=== PATIENT | male | born 1955 | race Caucasian/White ===

== ENCOUNTER 2018-04-01 07:59 | Inpatient (IN) ==
[2018-04-01] MEDS ORDERED: Nitroglycerin 0.4 MG TAB.SUBL SL PRN (10:57)
[2018-04-01] MEDS ORDERED: Naloxone 0.4 MG/ML INJ IVP PRN ×2 (10:58→11:01)
--- NOTE | 2018-04-01 11:03 | History & Physical Report ---
Date of Encounter: 04/01/18 Time of Encounter: 10:30 24 Hour HP Update - Instructions Instructions: If the History and Physical is less than 30 days old and was completed prior to A.M. admission and or procedure and has NOT been updated on calendar day of procedure please complete this update prior to performing procedure. - Update Patient reports changes in Medical Condition: No Changes in examination, assessment, or condition: No Changes in Medication: No Preop tests/diagnostics Reviewed: Yes
[2018-04-01] MEDS: Aspirin Enteric Coated 81 MG Tablet PO SCH (11:11)
[2018-04-01] MEDS: Isosorbide MONOnitrate (24 HR) 30 MG TAB.ER.24H PO SCH (11:12)
[2018-04-01] MEDS: Magnesium Oxide 400 MG TABLET PO SCH (11:12)
[2018-04-01] MEDS: GuaiFENesin Liq 200 MG/10 ML UDC PO PRN (15:39)
[2018-04-01 16:13] LABS: INR 2.7; Prothrombin Time 30.8 Seconds (9.4-12.1)
[2018-04-01] MEDS: *HR* Warfarin 5 MG TABLET PO SCH (17:22)
[2018-04-01] MEDS ORDERED: Warfarin perPT PO PRN (18:00)
[2018-04-02 06:07] LABS: INR 2.7; Prothrombin Time 30.9 Seconds (9.4-12.1)
[2018-04-02] MEDS: Aspirin Enteric Coated 81 MG Tablet PO SCH (07:40)
[2018-04-02] MEDS: Magnesium Oxide 400 MG TABLET PO SCH (07:40)
[2018-04-02] MEDS: Isosorbide MONOnitrate (24 HR) 30 MG TAB.ER.24H PO SCH (07:40)
--- NOTE | 2018-04-02 10:27 | Electrophysiology ProgressNote ---
Date of Encounter: 04/02/18 Time of Encounter: 10:24 Assessment and Plan (1) Atrial fibrillation Current Visit: No Status: Chronic Presents for sotalol increase for recurrent atrial fibrillation under the recommendation of Dr. Christopher Taylor. S/p two doses sotalol 120 mg. Remains in NSR. Baseline 04/01/18- EKG HR 71 bpm, SR with RBBB, QT/QTc 423/445, QRS 122. EKG 04/02/18- HR 57 bpm, QT/QTc 475/468, QRS 123. Telemetry shows avg HR 68 bpm. Min HR 50. No afib seen. He is on coumadin therapy monitored by [facility]. [facility] 3.2 [facility] 5 weeks ago. INR 2.7 today. As of note patient held coumadin for one day in the past month anticipating shoulder injection. Qualifiers: Atrial fibrillation type: paroxysmal Qualified Code(s): I48.0 - Paroxysmal atrial fibrillation (2) Viral URI with cough Current Visit: Yes Status: Acute Notes cough 24 hours prior to admit. Denies history of COPD. Denies fever or chills. Lungs clear to auscultation. Will continue cough suppressant. Continue to monitor. Discussion w patient/family: The assessment and plan as outlined above was discussed with the patient and/or family members who expressed understanding and agreement. All questions were answered. Thank you for involving us in the care of your patient. Please call with any questions. Subjective Principal diagnosis: afib Interval history: Mr. Perdomo is resting in bed with no new complaints. C/o cough starting 48 hours prior to admit. Started on cough syrup yesterday. Denies fever or chills. Objective Vital Signs, Last 4 Hours Temp Pulse Resp BP Pulse Ox 04/02/18 07:53 98.1 F 60 18 162/99 98 General: Conversant, No Apparent Distress HEENT: Atraumatic, Normocephaly, Mucus Membranes Moist Neck: No JVD, Normal carotid pulses Cardiac: Reg Rate and Rhythm, Normal S1 and S2, No Murmur Lungs: Normal Breath Sounds, No Wheeze, Rales, Rhonchi Neuro: Alert and responsive, No focal deficits noted Abdomen: Soft, Non-Tender Skin: No rashes noted on visualized skin Musculoskeletal: No Chest Wall Tenderness Extremities: No Clubbing, No Cyanosis, No Edema, Normal Pulses, Other (Right arm weakness due to rotator cuff damage. ) Results Lab Results 04/01/18 04/02/18 15:36 05:29 INR 2.7 2.7 - Imaging and Cardiology Echo: report reviewed - EKG Interpretation EKG results cardiology: personally reviewed - VTE Reasons for not Prescribing Prophylaxis: Not indicated-Anticoagulated or INR therapeutic Consult Discharge Plan - Plan Referrals: Christopher Taylor MD [Partnered Physician] - (Office will call patient at home with follow up appointment) [facility] [[facility] Care Provider[facility] - 04/14/18 1:15 pm
[2018-04-02] MEDS: GuaiFENesin Liq 200 MG/10 ML UDC PO PRN ×2 (11:40→17:29)
[2018-04-02] MEDS: *HR* Warfarin 5 MG TABLET PO SCH (17:26)
[2018-04-03 04:49] LABS: INR 2.7; Prothrombin Time 30.4 Seconds (9.4-12.1)
[2018-04-03] MEDS: Isosorbide MONOnitrate (24 HR) 30 MG TAB.ER.24H PO SCH (08:37)
[2018-04-03] MEDS: GuaiFENesin Liq 200 MG/10 ML UDC PO PRN (08:37)
[2018-04-03] MEDS: Aspirin Enteric Coated 81 MG Tablet PO SCH (08:37)
[2018-04-03] MEDS: Magnesium Oxide 400 MG TABLET PO SCH (08:37)
--- NOTE | 2018-04-03 10:56 | Discharge Summary ---
Orders not resulted at time of discharge: Pending orders 04/03/18 06:00 ECG 12 lead ECG [ECG] AM 0600 04/03/18 12:00 EKG [ECG 12 lead ECG] [ECG] Routine 04/04/18 04:00 INR/PT [Prothrombin Time INR] [COAG] AM 0400 04/04/18 06:00 ECG 12 lead ECG [ECG] AM 0600 Date of Encounter: 04/03/18 Time of Encounter: 10:50 - Discharge Diagnosis (1) Atrial fibrillation Priority: Primary Status: Chronic Comments: Directly admitted for paroxysmal atrial fibrillation and antiarrhythmic titration. Qualifiers: Atrial fibrillation type: paroxysmal Qualified Code(s): I48.0 - Paroxysmal atrial fibrillation - Hospital Course Hospital course: Mr. Main is a 62 year old male directly admitted for up titration of sotalol for paroxysmal atrial fibrillation. Patient remained sinus rhythm during the entire stay. Prepping for discharge today on sotalol 120 mg by mouth every 12 hours. Discussed and reviewed with Dr. Christopher Taylor. Remains anticoagulated with Coumadin. All questions answered. - Time Spent with Patient Total time spent providing and/or coordinating discharge services: Less than 30 minutes - Discharge Medications Prescriptions: Sotalol [Betapace] 120 mg PO Q12H #60 tablet Home Medications: Warfarin [Coumadin] 7.5 mg PO SUMOTUWETHSA@1800 12/31/15 [History] Nitroglycerin [Nitrostat] 0.4 mg SL DAILY PRN 05/31/16 [History] Isosorbide MONOnitrate (24 HR) [Imdur] 90 mg PO DAILY 04/01/18 [History] Acetaminophen [Tylenol] 1,000 mg PO TID PRN 04/02/18 [History] Aspirin [Lo-Dose Aspirin EC] 81 mg PO DAILY 04/02/18 [History] Atorvastatin Calcium [Lipitor] 40 mg PO DAILY 04/02/18 [History] Diclofenac Sodium [Voltaren] 1 appl TP QID PRN 04/02/18 [History] Lisinopril [Zestril] 10 mg PO DAILY 04/02/18 [History] Magnesium Oxide [Magnesium] 500 mg PO DAILY 04/02/18 [History] Methocarbamol [Robaxin] 750 mg PO TID PRN 04/02/18 [History] Omeprazole [PriLOSEC] 20 mg PO DAILY 04/02/18 [History] Warfarin Sodium 5 mg PO FR@1800 04/02/18 [History] Sotalol [Betapace] 120 mg PO Q12H #60 tablet 04/03/18 [Rx] Allergies/Adverse Reactions: 3 Allergy/AdvReac Type Severity Reaction Status Date / Time No Known Allergies Allergy Verified 04/02/18 13:34 Date of admission: 04/01/18 10:51 Primary care physician: [facility] Consults: none Discharging clinician: Rene Serna Anticipated date of discharge: 04/03/18 Physical Examination Vital Signs, Last 4 Hours Temp Pulse Resp BP Pulse Ox 04/03/18 06:58 98.3 F 59 17 171/94 97 General: Conversant, No Apparent Distress HEENT: Atraumatic, Normocephaly, Mucus Membranes Moist Neck: No JVD, Normal carotid pulses Cardiac: Reg Rate and Rhythm, Normal S1 and S2, No Murmur Lungs: Normal Breath Sounds, No Wheeze, Rales, Rhonchi Neuro: Alert and responsive, No focal deficits noted Abdomen: Soft, Non-Tender Skin: No rashes noted on visualized skin Musculoskeletal: No Chest Wall Tenderness Extremities: No Clubbing, No Cyanosis, No Edema, Normal Pulses - Patient Status Disposition: Home, Self-Care Functional capacity at discharge: independent ambulation Overall status at discharge: patient is progressing back to baseline - Discharge Instructions Instructions: Sotalol (By mouth), Atrial Fibrillation (DC) Follow Up With: Christopher Taylor MD [Partnered Physician] - (Office will call patient at home with follow up appointment) [facility] [Primary Care Provider] - 04/14/18 1:15 pm - Diet and Activity Diet: advance to your usual diet, low fat, low cholesterol, low salt diet - VTE Reasons for not Prescribing Prophylaxis: Not indicated-Anticoagulated or INR therapeutic
[2018-04-03 11:17] VITALS: BP 140/81
--- NOTE | 2018-04-03 12:02 | Electrocardiograph Report ---
[place] [address] Test Date: 2018-04-01 Pat Name: Bob Main Department: 110 Room: Gender: M Brewing Director: : 1955 Requested By: Rene Serna Order Number: [id number] Reading MD: Jad Choi Measurements Intervals [place] Rate: 71 P: 54 MO: 156 QRS: -46 QRSD: 122 T: 5 QT: 423 QTc: 445 Interpretive Statements SINUS RHYTHM RIGHT BUNDLE BRANCH BLOCK LEFT ANTERIOR FASCICULAR BLOCK POSSIBLE LEFT VENTRICULAR HYPERTROPHY Electronically Signed On 04-03-2018 12:00:23 EDT by Jad Choi
--- NOTE | 2018-04-03 14:13 | Electrocardiograph Report ---
[place] [address] Test Date: 2018-04-02 Pat Name: Bob Main Department: 110 Room: 2N12 Gender: M Electronics Specialist: ANITA : 1955 Requested By: Rene Serna Order Number: [id number] Reading MD: Jad Choi Measurements Intervals [place] Rate: 57 P: 54 [place]: 167 QRS: -31 QRSD: 123 T: -5 QT: 475 QTc: 468 Interpretive Statements SINUS BRADYCARDIA RIGHT BUNDLE BRANCH BLOCK Left axis deviation Moderate voltage criteria for LVH Electronically Signed On 04-03-2018 14:11:51 EDT by Jad Choi Electronically Signed On 04-03-2018 15:17:38 EDT by Jad Choi
--- NOTE | 2018-04-03 15:17 | Electrocardiograph Report ---
[address] [address] Test Date: 2018-04-03 Pat Name: Bob Main Department: 110 Room: 2N12 Gender: Operational Intelligence Officer: REID : [id number] Requested By: Rene Serna Order Number: [id number] Reading MD: Jad Choi Measurements Intervals [place] Rate: 56 P: 47 [place]: 158 QRS: -36 QRSD: 133 T: -5 QT: 468 QTc: 461 Interpretive Statements SINUS BRADYCARDIA MARKED LEFT AXIS DEVIATION RIGHT BUNDLE BRANCH BLOCK MODERATE VOLTAGE CRITERIA FOR LVH Electronically Signed On 04-03-2018 15:15:28 EDT by Jad Choi
[2018-04-03] MEDS ORDERED: *HR* Warfarin 5 MG TABLET PO SCH (18:00)
[2018-04-04] MEDS ORDERED: *HR* Warfarin 5 MG TABLET PO SCH (18:00)
--- NOTE | 2018-04-23 21:34 | Electrocardiograph Report ---
[address] [place], [place] [address] Test Date: 2018-04-03 Pat Name: Bob Main Department: 110 Room: 2N12 Gender: Pickers Material Handlers: RADHA : 1955 Requested By: Order Number: [id number] Reading MD: Jad Choi Measurements Intervals [place] Rate: 57 P: 55 [place]: 178 QRS: -34 QRSD: 121 T: -3 QT: 467 QTc: 461 Interpretive Statements SINUS BRADYCARDIA WITH OCCASIONAL SUPRAVENTRICULAR PREMATURE COMPLEXES MARKED LEFT AXIS DEVIATION RIGHT BUNDLE BRANCH BLOCK POSSIBLE LEFT VENTRICULAR HYPERTROPHY Electronically Signed On 04-23-2018 21:33:15 EDT by Jad Choi
== END 2018-04-03 12:41 | disposition home or self-care (01) | DRG 950 ==
LOC: 2NNU 10:51
PROVIDERS: ADMIT Internal Medicine Clinical Cardiac Electrophysiology; ATTEND Internal Medicine Clinical Cardiac Electrophysiology

== ENCOUNTER 2019-03-30 07:08 | Observation (INO) ==
[2019-03-30] MEDS ORDERED: 0.9 % Sodium Chloride 1,000 ML ONE ×4 (07:31→13:10)
[2019-03-30] MEDS: 0.9 % Sodium Chloride 1,000 ML IVC SCH ×2 (07:44→17:43)
[2019-03-30] MEDS ORDERED: *HR* Heparin 10,000 UNIT/10 ML VIAL ONE (08:09)
[2019-03-30] MEDS ORDERED: Iopamidol 125 ML INFUS..BTL ONE (08:09)
[2019-03-30] MEDS ORDERED: Heparin 1,000 UNITS/500 mL 500 ML ONE (08:09)
[2019-03-30 08:13] LABS: INR 2.1; Prothrombin Time 23.5 Seconds (9.4-12.1)
[2019-03-30] MEDS ORDERED: *HR* FentaNYL (PF) 250 MCG/5 ML VIAL ONE (09:57)
[2019-03-30] MEDS ORDERED: *HR* Midazolam HCl 2 MG/2 ML VIAL ONE (09:58)
[2019-03-30] MEDS ORDERED: Protamine Sulfate 50 MG/5 ML VIAL IVP ONE ×3 (12:00→12:17)
[2019-03-30] MEDS ORDERED: Naloxone 0.4 MG/ML INJ IVP PRN (12:03)
[2019-03-30] MEDS ORDERED: Nitroglycerin 0.4 MG TAB.SUBL SL PRN (12:40)
[2019-03-30] MEDS ORDERED: EPHEDrine 50 MG/ML VIAL IVP ONE (13:34)
[2019-03-30] MEDS ORDERED: *HR* Phenylephrine 10 MG/ML VIAL IVC ONE (13:34)
[2019-03-30] MEDS ORDERED: *HR* Water for inj. (sterile) Vial IV ONE (13:34)
[2019-03-30] MEDS ORDERED: Ondansetron 4 MG/2 ML VIAL IVP ONE (13:34)
[2019-03-30] MEDS ORDERED: *HR* Propofol 200 MG/20 ML VIAL IVP ONE (13:34)
[2019-03-30] MEDS ORDERED: *HR* Rocuronium Bromide 50 MG/5 ML VIAL IVC ONE (13:34)
[2019-03-30] MEDS ORDERED: Lidocaine 2% Syringe 100 MG/5 ML IV ONE (13:34)
[2019-03-30] MEDS ORDERED: *HR* Succinylcholine 200 MG/10 ML VIAL IVP ONE (13:34)
[2019-03-30] MEDS ORDERED: Lidocaine -MPF 4% 5 ML AMPUL INFILT ONE (13:34)
[2019-03-30] MEDS: *HR* Metformin 500 MG TABLET PO SCH (17:41)
[2019-03-30] MEDS ORDERED: *HR* Warfarin 7.5 MG TABLET PO SCH (18:00)
[2019-03-30] MEDS ORDERED: Acetaminophen 325 MG TABLET PO PRN (19:01)
[2019-03-31 04:02] VITALS: BP 134/76
[2019-03-31] MEDS: *HR* Metformin 500 MG TABLET PO SCH (08:06)
[2019-03-31] MEDS ORDERED: Aspirin Enteric Coated 81 MG Tablet PO SCH (09:00)
[2019-03-31] MEDS ORDERED: Isosorbide MONOnitrate (24 HR) 30 MG TAB.ER.24H PO SCH (09:00)
[2019-03-31] MEDS ORDERED: Magnesium Oxide 400 MG TABLET PO SCH (09:00)
[2019-04-03] MEDS ORDERED: *HR* Warfarin 5 MG TABLET PO SCH (18:00)
== END 2019-03-31 13:35 | disposition home or self-care (01) ==
LOC: ICNU 07:08 → INVDIALAB 07:08 → ICNU 03-31 09:44
PROVIDERS: ADMIT Internal Medicine Clinical Cardiac Electrophysiology; ATTEND Internal Medicine Clinical Cardiac Electrophysiology

== ENCOUNTER 2021-07-07 14:33 | Inpatient (IN) ==
[2021-07-07] MEDS ORDERED: *HR* HYDROmorphone (PF) 1 MG/ML SYRINGE IVP PRN ×2 (14:41→17:25)
[2021-07-07] MEDS ORDERED: Pregabalin 75 MG CAPSULE PO ONE (14:41)
[2021-07-07] MEDS ORDERED: *HR* Labetalol 20 MG/4 ML SYRINGE IVP PRN ×2 (14:41→17:25)
[2021-07-07] MEDS ORDERED: Famotidine 20 MG/2 ML VIAL IVP ONE (14:41)
[2021-07-07] MEDS ORDERED: Acetaminophen IV 1,000 MG/100 ML BAG IVPB ONE ×2 (14:41→15:54)
[2021-07-07] MEDS ORDERED: *HR* OxyCODONE Immed Rel 5 MG TABLET PO PRN ×4 (14:41→17:25)
[2021-07-07] MEDS ORDERED: *HR* HYDROmorphone 2 MG TABLET PO PRN ×2 (14:41→17:25)
[2021-07-07] MEDS ORDERED: Lidocaine HCL 4 ML Topical Solution (Laryng-O-Jet Kit Sterile Pak) TP ONE (15:37)
[2021-07-07] MEDS ORDERED: *HR* FentaNYL (PF) 100 MCG/2 ML VIAL ONE (15:37)
[2021-07-07] MEDS ORDERED: Lidocaine -MPF 2% 5 ML VIAL ONE ×2 (15:37→15:38)
[2021-07-07] MEDS ORDERED: Ondansetron 4 MG/2 ML VIAL ONE (15:37)
[2021-07-07] MEDS ORDERED: *HR* Propofol 200 MG/20 ML VIAL IVP ONE ×2 (15:37→15:39)
[2021-07-07] MEDS ORDERED: ceFAZolin 2,000 MG in Water for inj. (sterile) 20 ML IVP ONE (15:46)
[2021-07-07] MEDS ORDERED: *HR* Rocuronium Bromide 50 MG/5 ML VIAL ONE (15:47)
[2021-07-07] MEDS ORDERED: Naloxone 0.4 MG/ML INJ IVP PRN ×2 (16:01→17:25)
[2021-07-07] MEDS ORDERED: Acetaminophen 325 MG TABLET PO PRN ×2 (16:01→17:25)
[2021-07-07] MEDS ORDERED: Ondansetron 4 MG/2 ML VIAL IVP PRN ×2 (16:01→17:25)
[2021-07-07] MEDS ORDERED: *HR* HYDROcodone/Acet 5/325 mg TABLET PO PRN ×2 (16:01→18:00)
[2021-07-07] MEDS ORDERED: EPHEDrine 50 MG/ML VIAL ONE (16:08)
[2021-07-07] MEDS ORDERED: Ringers Solution, Lactated 1,000 ML IVC SCH (16:15)
[2021-07-07] MEDS: Ringers Solution, Lactated 1,000 ML IVC SCH (17:50)
[2021-07-07] MEDS ORDERED: *HR* Warfarin 5 MG TABLET PO ONE (18:00)
[2021-07-07] MEDS ORDERED: Warfarin perPT PO PRN ×2 (18:00)
[2021-07-08] MEDS: Ringers Solution, Lactated 1,000 ML IVC SCH ×3 (05:05→21:30)
[2021-07-08 07:03] LABS: Basophils % 0.1 %; Mean Corpuscular Hemoglobin 19.9 pg (28.0-33.3); Monocytes % 6.3 %
[2021-07-08 07:04] LABS: Hemoglobin 8.4 g/dL (12.9-16.9); Immature Granulocytes % 0.7 % (0-4); Lymphocytes # 0.2 K/mcL (0.6-4.6); Lymphocytes % 2.4 %; Mean Corpuscular HGB Conc 27.1 g/dL (31.6-35.5); Mean Corpuscular Volume 73.5 fL (83.0-100.0); Mean Platelet Volume 9.9 fL (9.4-12.4); Monocytes # 0.6 K/mcL (0.0-1.3); Neutrophils # 8.9 K/mcL (1.6-8.9); Nucleated Red Blood Cells 2.7 /100 WBC (0); Platelet Count 297 K/mcL (140-400); Red Blood Count 4.22 M/mcL (4.19-5.50); Red Cell Distribution Width 20.7 % (11.5-14.5); Segmented Neutrophils % 90.5 %; White Blood Count 9.8 K/mcL (4.3-11.1)
[2021-07-08 07:12] LABS: INR 3.1; Prothrombin Time 34.1 Seconds (9.4-12.1)
[2021-07-08 07:20] LABS: Calcium 8.5 mg/dL (8.6-10.3); Potassium 4.9 mEq/L (3.5-5.1)
[2021-07-08] MEDS ORDERED: Nitroglycerin 0.4 MG TAB.SUBL SL PRN (07:35)
[2021-07-08] MEDS: Aspirin Enteric Coated 81 MG Tablet PO SCH (08:50)
[2021-07-08] MEDS: Isosorbide MONOnitrate (24 HR) 30 MG TAB.ER.24H PO SCH (08:50)
[2021-07-08] MEDS: cefTRIAXone 1,000 MG in 0.9 % Sodium Chloride Mini Bag 100 ML IVP SCH (08:50)
[2021-07-08] MEDS ORDERED: cefTRIAXone 1,000 MG in 0.9 % Sodium Chloride Mini Bag 100 ML IVP SCH (09:00)
[2021-07-08] MEDS ORDERED: *HR* Warfarin 2.5 MG TABLET PO ONE (18:00)
[2021-07-09 02:30] LABS: Immature Granulocytes % 0.7 % (0-4); Platelet Count 288 K/mcL (140-400)
[2021-07-09 02:32] LABS: Basophils % 0.2 %; Hematocrit 29.4 % (37.5-50.1); Hemoglobin 8.2 g/dL (12.9-16.9); Lymphocytes # 0.5 K/mcL (0.6-4.6); Lymphocytes % 4.2 %; Mean Corpuscular HGB Conc 27.9 g/dL (31.6-35.5); Mean Corpuscular Hemoglobin 20.6 pg (28.0-33.3); Mean Corpuscular Volume 73.9 fL (83.0-100.0); Mean Platelet Volume 10.2 fL (9.4-12.4); Monocytes # 1.3 K/mcL (0.0-1.3); Monocytes % 10.1 %; Neutrophils # 10.8 K/mcL (1.6-8.9); Nucleated Red Blood Cells 0.9 /100 WBC (0); Red Blood Count 3.98 M/mcL (4.19-5.50); Red Cell Distribution Width 21.6 % (11.5-14.5); Segmented Neutrophils % 84.8 %; White Blood Count 12.7 K/mcL (4.3-11.1)
[2021-07-09 02:47] LABS: Albumin 3.3 g/dL (3.5-5.7); Albumin/Globulin Ratio 1.5 (1.1-2.2); Bilirubin,Total 0.5 mg/dL (0.3-1.0); Calcium 8.3 mg/dL (8.6-10.3); Globulin 2.2 g/dL (2.4-3.5); INR 3.3; Potassium 4.4 mEq/L (3.5-5.1); Prothrombin Time 36.9 Seconds (9.4-12.1); Total Protein 5.5 g/dL (6.4-8.9)
[2021-07-09] MEDS: Ringers Solution, Lactated 1,000 ML IVC SCH ×3 (05:58→23:31)
[2021-07-09] MEDS ORDERED: 0.9 % Sodium Chloride 1,000 ML IVC SCH (07:45)
[2021-07-09] MEDS: cefTRIAXone 1,000 MG in 0.9 % Sodium Chloride Mini Bag 100 ML IVP SCH (07:50)
[2021-07-09] MEDS: Aspirin Enteric Coated 81 MG Tablet PO SCH (07:51)
[2021-07-09] MEDS: Isosorbide MONOnitrate (24 HR) 30 MG TAB.ER.24H PO SCH (07:51)
[2021-07-09] MEDS ORDERED: *HR* Warfarin 1 MG TABLET PO ONE (18:00)
[2021-07-10 06:30] LABS: INR 2.3; Prothrombin Time 25.3 Seconds (9.4-12.1)
[2021-07-10 06:43] LABS: Calcium 8.4 mg/dL (8.6-10.3); Potassium 4.4 mEq/L (3.5-5.1)
[2021-07-10] MEDS: cefTRIAXone 1,000 MG in 0.9 % Sodium Chloride Mini Bag 100 ML IVP SCH (08:06)
[2021-07-10] MEDS: Isosorbide MONOnitrate (24 HR) 30 MG TAB.ER.24H PO SCH (08:06)
[2021-07-10] MEDS: Aspirin Enteric Coated 81 MG Tablet PO SCH (08:06)
[2021-07-10 08:17] VITALS: BP 171/99; PULSE 80; TEMP 97.4; O2SAT 98
== END 2021-07-10 09:30 | disposition home or self-care (01) | DRG 660 ==
LOC: EMEROOARM 14:33 → 3ANU 14:33
PROVIDERS: ADMIT Internal Medicine; ATTEND Internal Medicine